=== PATIENT | female | born 2000 | race Caucasian/White ===

== ENCOUNTER 2024-11-14 22:29 | Emergency (ER) | payer SELFPAY ==
[2024-11-14] MEDS ORDERED: NA CHLORIDE 0.9% 1,000 ML ONE (22:36)
[2024-11-14] MEDS ORDERED: LORazepam 2 MG/ML VIAL ONE (22:36)
[2024-11-14 22:50] LABS: Absolute Lymphocytes (CBC) 1.5 K/uL (0.7-4.9); Hematocrit 37.7 % (36.0-45.0); Hemoglobin 12.8 g/dL (12.0-15.0); MCH 28.8 pg (27.0-35.0); MCHC 34.0 g/dL (32.0-36.0); MCV 84.7 fL (80-100); MPV 6.4 fL (7.6-11.3); Nucleated RBC Absolute Count 0.0 (0-0); Nucleated Red Blood Cells % 0.0 % (0-0); RBC Red Blood Cell Count 4.46 M/uL (3.86-4.86); White Blood Count 16.30 thou/uL (4.3-10.9)
[2024-11-14 22:59] LABS: PT Prothrombin Time 12.8 SECONDS (10-13.0); Protime INR 1.14
[2024-11-14 23:00] LABS: PTT, Activated Partial Thromb 37.8 SECONDS (27.2-37.4)
[2024-11-14 23:12] LABS: ALT/SGPT 15 U/L (13-56); Albumin 3.9 g/dL (3.4-5.0); Albumin/Globulin Ratio 1.1 (1.1-1.8); Alkaline Phosphatase 53 U/L (45-117); Anion Gap 8.8 mEq/L (5.0-15.0); BUN Blood Urea Nitrogen 6 mg/dL (7-18); Globulin 3.4 g/dL (2.3-3.5); Glucose Level 106 mg/dL (74-106); Potassium 3.8 mEq/L (3.5-5.1)
[2024-11-14 23:13] LABS: AST/SGOT < 10 U/L (15-37); Bilirubin Indirect, Calculated 0.1 mg/dL (0.2-0.8)
[2024-11-14 23:26] LABS: METHAMPHETAM POSITIVE (NEGATIVE); THC Cannibis POSITIVE (NEGATIVE)
--- NOTE | 2024-11-14 23:44 | ER ---
Nurse's Notes [facility]ly [facility] Name: Monique Ruelas Age: 24 yrs Sex: Female : 2000 Arrival Date: 11/14/2024 Time: 22:29 Bed 3 Private MD: Diagnosis: Cocaine abuse, methamphetamine abuse, THC abuse Presentation: 11/14 22:31 Chief complaint: Patient states: is going through fentanyl withdrawal x5.5 hours, al5 admits to swallowing ".5 of meth". Coronavirus screen: At this time, the client does not indicate any symptoms associated with coronavirus-19. Ebola Screen: No symptoms or risks identified at this time. Initial Sepsis Screen: Does the patient meet any 2 criteria? HR > 90 bpm. No. Patient's initial sepsis screen is negative. Does the patient have a suspected source of infection? No. Patient's initial sepsis screen is negative. Risk Assessment: Do you want to hurt yourself or someone else? Patient reports no desire to harm self or others. Onset of symptoms was November 14, 2024. 22:31 Method Of Arrival: EMS: [facility] 22:31 Acuity: AKHIL 3 al5 Triage Assessment: 22:32 General: Appears in no apparent distress. comfortable, Behavior is cooperative, al5 anxious. Pain: Denies pain. EENT: No signs and/or symptoms were reported regarding the EENT system. Neuro: Level of Consciousness is awake, alert, obeys commands, Oriented to person, place, time, situation. Cardiovascular: Capillary refill < 3 seconds Patient's skin is warm and dry. Rhythm is sinus tachycardia. Respiratory: Airway is patent Respiratory effort is even, unlabored, Respiratory pattern is regular, symmetrical. GI: No signs and/or symptoms were reported involving the gastrointestinal system. : No signs and/or symptoms were reported regarding the genitourinary system. Derm: Skin is intact, is healthy with good turgor, Skin is pink, warm \\T\\ dry. normal. Musculoskeletal: Circulation, motion, and sensation intact. Range of motion: intact in all extremities. 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 - Infectious Disease History:: Denies. - Social history:: Smoking status: Patient reports the use of cigarette tobacco products, smokes one pack cigarettes per day. Reported history of juuling and/or vaping. Patient uses street drugs, Methamphetamine (Meth) fentanyl, Patient/guardian denies using alcohol. Screenin:34 [facility] ED Fall Risk Assessment (Adult) History of falling in the last 3 months, al5 including since admission No falls in past 3 months (0 pts) Confusion or Disorientation No (0 pts) Intoxicated or Sedated No (0 pts) Impaired Gait No (0 pts) Mobility Assist Device Used No (0 pt) Altered Elimination No (0 pt) Score/Fall Risk Level 0 - 2 = Low Risk Oriented to surroundings, Maintained a safe environment, Hourly rounding (assess needs \\T\\ fall precautionary measures) done. Abuse screen: Denies threats or abuse. Denies injuries from another. Nutritional screening: No deficits noted. Tuberculosis screening: No symptoms or risk factors identified. Assessment: 22:34 Reassessment: see triage assessment. al5 23:36 Reassessment: Patient appears in no apparent distress at this time. Patient and/or bm8 family updated on plan of care and expected duration. Pain level reassessed. Patient is alert, oriented x 3, equal unlabored respirations, skin warm/dry/pink. Patient denies pain at this time. Patient states feeling better. Patient states symptoms have improved. Overdose: 22:35 [place] Suicide Severity Screening: "In the past month, have you wished you were al5 or wished you could go to sleep and not wake up?" Patient responds "no." "In the past month, have you actually had any thoughts of killing yourself?" Patient responds "no." "In your lifetime, have you ever done anything, started to do anything, or prepared to do anything to end your life?" Patient responds "no.". 23:46 [place] Suicide Severity Screening: "In the past month, have you wished you were bm8 or wished you could go to sleep and not wake up?" Patient responds "no." "In the past month, have you actually had any thoughts of killing yourself?" Patient responds "no." "In your lifetime, have you ever done anything, started to do anything, or prepared to do anything to end your life?" Patient responds "no.". Vital Signs: 22:31 BP 130 / 80; Pulse 130; Resp 18; Temp 98.7(O); Pulse Ox 99% on R/A; Weight 56.7 kg; al5 Height 5 ft. 2 in. ; 23:36 BP 136 / 69; Pulse 116; Resp 20; Temp 98.7; Pulse Ox 100% ; Pain 0/10; bm8 23:44 BP 120 / 64; Pulse 115; Resp 20; Temp 98.7; Pulse Ox 100% ; Pain 0/10; bm8 22:31 Body Mass Index 22.86 (56.70 kg, 157.48 cm) al5 23:36 Pain Scale: Adult bm8 23:44 Pain Scale: Adult bm8 [place] Coma Score: 23:36 Eye Response: spontaneous(4). Motor Response: obeys commands(6). Verbal Response: bm8 oriented(5). Total: 15. 23:44 Eye Response: spontaneous(4). Motor Response: obeys commands(6). Verbal Response: bm8 oriented(5). Total: 15. ED Course: 22:31 Patient arrived in ED. sp3 22:31 Bradley Adame MD is Attending Physician. sp3 22:32 Triage completed. al5 22:34 Arm band placed on right wrist. Patient placed in the treatment room, in view of staff al5 members, on secured entrance monitor, on pulse oximetry. 22:34 Patient has correct armband on for positive identification. Bed in low position. Call al5 light in reach. Side rails up X2. police at bedside. Provided Education on: plan of care. 22:34 No provider procedures requiring assistance completed. Inserted saline lock: 18 gauge al5 in right antecubital area, using aseptic technique. ,using aseptic technique. done by ANTONELLA Link Blood collected. Flushed with 10 mL NS. 22:59 Maureen Reynolds RN is Primary Nurse. kb4 23:36 Client placed on continuous cardiac and pulse oximetry monitoring. NIBP monitoring bm8 applied. Pulse ox on. NIBP on. Door closed. Noise minimized. Pillow given. Verbal reassurance given. Head of bed elevated. 23:36 Initial lab(s) drawn, by me, sent to lab. Patient maintains SpO2 saturation greater bm8 than 95% on room air. 23:44 IV discontinued, intact, bleeding controlled, No redness/swelling at site. Pressure bm8 dressing applied. Administered Medications: 22:41 Drug: cloNIDine PO 0.2 mg PO once Route: PO; bm8 23:38 Follow up: Response: No adverse reaction bm8 22:41 Drug: NS 0.9% IV 1000 ml IV at 1 bolus Per protocol; to be given as a bolus over 60 bm8 minutes Route: IV; Rate: 1 bolus; Site: right antecubital; 23:37 Follow up: Response: No adverse reaction; IV Status: Completed infusion bm8 22:41 Drug: Ativan IVP 2 mg IVP once Route: IVP; Site: right antecubital; bm8 23:37 Follow up: Response: No adverse reaction bm8 Medication: 22:34 VIS not applicable for this client. al5 Outcome: 23:44 Discharge ordered by . sp3 23:44 Discharged to Law Enforcement bm8 23:44 Condition: stable 23:44 Discharge instructions given to patient, police, Instructed on discharge instructions, follow up and referral plans. Demonstrated understanding of instructions, follow-up care, medications, 23:51 Patient left the ED. bm8 Signatures: Bradley Adame MD MD sp3 Nikolay Michael, RN RN bm8 Mariela Rutledge RN RN al5 Maureen Reynolds, RN RN kb4 Corrections: (The following items were deleted from the chart) 22:35 22:34 Inserted saline lock: 18 gauge in right antecubital area, using aseptic al5 technique. Blood collected. Flushed with 10 mL NS al5
--- NOTE | 2024-11-14 23:44 | EDPHYS ---
Physician Documentation [facility] Name: Monique Ruelas Age: 24 yrs Sex: Female : 2000 Arrival Date: 11/14/2024 Time: 22:29 Bed 3 Private MD: ED Physician Bradley Adame HPI: 11/14 23:09 This 24 yrs old Female presents to ER via EMS with complaints of Drug Abuse. sp3 23:09 24-year-old female with history of fentanyl, Percocet and other narcotic abuse since sp3 age 20 and presents in police custody for narcotic withdrawal and ingestion of "a small bag of methamphetamine" in the back of the police vehicle. Patient states that the meth is something new that she does not normally take it. She denies any injury, headache, neck pain, chest pain, shortness of breath, abdominal pain but does endorse nausea, vomiting/dry heaving and shaking due to the withdrawal. She denies alcohol use. ROS otherwise negative.. 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 - Infectious Disease History:: Denies. - Social history:: Smoking status: Patient reports the use of cigarette tobacco products, smokes one pack cigarettes per day. Reported history of juuling and/or vaping. Patient uses street drugs, Methamphetamine (Meth) fentanyl, Patient/guardian denies using alcohol. ROS: 23:11 Constitutional: Negative for fever, chills, and weight loss, Eyes: Negative for injury, sp3 pain, redness, and discharge, ENT: Negative for injury, pain, and discharge, Neck: Negative for injury, pain, and swelling, Respiratory: Negative for shortness of breath, cough, wheezing, and pleuritic chest pain, Abdomen/GI: Negative for abdominal pain, nausea, vomiting, diarrhea, and constipation, Back: Negative for injury and pain, MS/Extremity: Negative for injury and deformity, 23:11 All other systems are negative, Exam: 23:11 Constitutional: This is a well developed, well nourished patient who is awake, alert, sp3 and in no acute distress. Head/Face: Normocephalic, atraumatic. Eyes: Pupils equal round and reactive to light, extra-ocular motions intact. Lids and lashes normal. Conjunctiva and sclera are non-icteric and not injected. Cornea within normal limits. Periorbital areas with no swelling, redness, or edema. ENT: Nares patent. No nasal discharge, no septal abnormalities noted. External auditory canals are clear. Oropharynx with no redness, swelling, or masses, exudates, or evidence of obstruction, uvula midline. Mucous membranes moist. Neck: Trachea midline, no thyromegaly or masses palpated, and no cervical lymphadenopathy. Supple, full range of motion without nuchal rigidity, or vertebral point tenderness. No Meningismus. Chest/axilla: Normal chest wall appearance and motion. Nontender with no deformity. No lesions are appreciated. Respiratory: Lungs have equal breath sounds bilaterally, clear to auscultation and percussion. No rales, rhonchi or wheezes noted. No increased work of breathing, no retractions or nasal flaring. Abdomen/GI: Soft, non-tender, with normal bowel sounds. No distension or tympany. No guarding or rebound. No evidence of tenderness throughout. Back: No spinal tenderness. No costovertebral tenderness. Full range of motion. Skin: Warm, dry with normal turgor. Normal color with no rashes, no lesions, and no evidence of cellulitis. MS/ Extremity: Pulses equal, no cyanosis. Neurovascular intact. Full, normal range of motion. Neuro: Awake and alert, GCS 15, oriented to person, place, time, and situation. Cranial nerves II-XII grossly intact. Motor strength 5/5 in all extremities. Sensory grossly intact. Cerebellar exam normal. Normal gait. 23:11 Cardiovascular: Rate: tachycardic, 23:11 Psych: Patient denies SI, HI or psychosis. She states that she has these withdrawals every time she stops. Last dosage was yesterday morning.. Vital Signs: 22:31 BP 130 / 80; Pulse 130; Resp 18; Temp 98.7(O); Pulse Ox 99% on R/A; Weight 56.7 kg; al5 Height 5 ft. 2 in. ; 23:36 BP 136 / 69; Pulse 116; Resp 20; Temp 98.7; Pulse Ox 100% ; Pain 0/10; bm8 23:44 BP 120 / 64; Pulse 115; Resp 20; Temp 98.7; Pulse Ox 100% ; Pain 0/10; bm8 22:31 Body Mass Index 22.86 (56.70 kg, 157.48 cm) al5 23:36 Pain Scale: Adult bm8 23:44 Pain Scale: Adult bm8 [place] Coma Score: 23:36 Eye Response: spontaneous(4). Motor Response: obeys commands(6). Verbal Response: bm8 oriented(5). Total: 15. 23:44 Eye Response: spontaneous(4). Motor Response: obeys commands(6). Verbal Response: bm8 oriented(5). Total: 15. MDM: 22:31 Medical Screening Exam initiated sp3 23:14 Data reviewed: vital signs, nurses notes, lab test result(s). ED course: 24-year-old sp3 female with narcotic withdrawal and small amount of methamphetamine ingestion patient is in police custody. Differential diagnosis includes withdrawal alone versus drug effect versus other process. Clinically have ruled out any psychiatric emergency. Treatment plan will be obtaining general labs and tox screen as well as treating with IV fluids, clonidine p.o. and Ativan IV. Disposition pending workup and patient course.. 23:43 ED course: Patient feeling much better. Heart rate now in the 108-112 range. UDS sp3 positive for methamphetamine, cocaine and THC. Patient will be going to [facility] where there is medical staff there. We will safely discharge her at this time still in custody.. 11/14 22:32 Order name: Acetaminophen; Complete Time: 23:34 3 11/14 22:32 Order name: Basic Metabolic Panel; Complete Time: 23:34 3 11/14 22:32 Order name: CBC with Diff; Complete Time: 23:34 3 11/14 22:32 Order name: ETOH Level; Complete Time: 23:34 3 11/14 22:32 Order name: Hepatic Function; Complete Time: 23:34 3 11/14 22:32 Order name: PT-INR; Complete Time: 23:34 3 11/14 22:32 Order name: Test, Urine; Complete Time: 23:34 3 11/14 22:32 Order name: Ptt, Activated; Complete Time: 23:34 3 11/14 22:32 Order name: Salicylate; Complete Time: 23:34 sp3 11/14 22:32 Order name: Urine Drug Screen; Complete Time: 23:34 sp3 11/14 22:32 Order name: IV Saline Lock; Complete Time: 22:41 sp3 11/14 22:32 Order name: Labs collected and sent; Complete Time: 22:41 sp3 11/14 22:32 Order name: Suicide Screening ([place]); Complete Time: 22:42 sp3 Administered Medications: 22:41 Drug: cloNIDine PO 0.2 mg PO once Route: PO; bm8 23:38 Follow up: Response: No adverse reaction bm8 22:41 Drug: NS 0.9% IV 1000 ml IV at 1 bolus Per protocol; to be given as a bolus over 60 bm8 minutes Route: IV; Rate: 1 bolus; Site: right antecubital; 23:37 Follow up: Response: No adverse reaction; IV Status: Completed infusion bm8 22:41 Drug: Ativan IVP 2 mg IVP once Route: IVP; Site: right antecubital; bm8 23:37 Follow up: Response: No adverse reaction bm8 Disposition Summary: 11/14/24 23:44 Discharge Ordered Notes: Location: Home sp3 Condition: Stable sp3 Diagnosis - Cocaine abuse, methamphetamine abuse, THC abuse sp3 Followup: sp3 - With: Private Physician - When: Upon discharge from the Emergency Department - Reason: Continuance of care Discharge Instructions: - Discharge Summary Sheet sp3 - Cocaine Use Disorder sp3 - Methamphetamines Use Disorder sp3 Forms: - Medication Reconciliation Form sp3 - Antibiotic Education sp3 - Prescription Opioid Use sp3 - Patient Portal Instructions sp3 - Leadership Thank You Letter sp3 Signatures: Dispatcher [employer] EDMS Bradley Adame MD MD sp3 Nikolay Michael, RN RN bm8 Mariela Rutledge, ANTONELLA RN al5 Corrections: (The following items were deleted from the chart) 22:33 22:33 ACETAMINOPHEN+C.LAB.BRZ ordered. EDMS EDMS 22:33 22:33 BASIC METABOLIC PANEL+C.LAB.BRZ ordered. EDMS EDMS 22:33 22:33 CBC+H.LAB.BRZ ordered. EDMS EDMS 22:33 22:33 ETHANOL+C.LAB.BRZ ordered. EDMS EDMS 22:33 22:33 HEPATIC FUNCTION+C.LAB.BRZ ordered. EDMS EDMS :33 22:33 PROTIME (+INR)+COAG.LAB.BRZ ordered. EDMS EDMS : 22:33 Test, Urine+UC.LAB.BRZ ordered. EDMS EDMS : 22:33 PTT, ACTIVATED+COAG.LAB.BRZ ordered. EDMS EDMS : 22:33 SALICYLATE+C.LAB.BRZ ordered. EDMS EDMS :33 22:33 URINE DRUG SCREEN+UC.LAB.BRZ ordered. EDMS EDMS
[2024-11-15 00:30] VITALS: TEMP 98.7
[2024-11-15 00:31] VITALS: O2SAT 100
[2024-11-15 00:32] VITALS: BP 120/64
== END 2024-11-14 23:51 | disposition home or self-care (01) ==
LOC: ER 22:29
DX: F14.10 Cocaine abuse, uncomplicated (principal); F15.10 Other stimulant abuse, uncomplicated; F12.10 Cannabis abuse, uncomplicated
CPT/HCPCS: 36415; 80048; 80076; 80143; 80179; 80307; 81025; 82077; 85025; 85610; 85730; 96361; 96374; 99285; J7030